=== PATIENT | female | born 1980 | race Caucasian/White ===

== ENCOUNTER → 2016-11-26 | Outpatient (CLI) | payer BC ==
[~2016-11-26] MED LIST: PRENTAB69 PO
== END | disposition home or self-care (01) ==
LOC: C.PAPS 15:19
PROVIDERS: ATTEND Obstetrics & Gynecology
DX: Z01.419 Encounter for gynecological examination (general) (routine) without abnormal findings (principal)

== ENCOUNTER → 2017-01-15 | Outpatient (CLI) | payer BC ==
--- NOTE | 2017-01-16 09:26 | PULMONARY FUNCTION TEST ---
CLINICAL DATA: A 36-year-old female with height of 72 inches and a weight 173 pounds referred by ALLY Schneider for pulmonary function testing to evaluate asthma and allergies with a cough. Spirometry pre- and post-bronchodilator, lung volumes, and DLCO were performed. FINDINGS: Pre-bronchodilator spirometry is within normal limits. FVC was 99% of predicted. FEV1 was 97% of predicted. [id number] was 92% of predicted. There was no significant improvement after inhaled bronchodilator. Lung volumes demonstrated a reduction in residual volume of unclear etiology. DLCO is normal at 125% of predicted. IMPRESSION: Normal spirometry with no improvement after inhaled bronchodilator. Normal diffusion capacity. MTDD
== END | disposition home or self-care (01) ==
LOC: C.RC 11:21
PROVIDERS: ATTEND Nurse Practitioner Family
DX: J30.9 Allergic rhinitis, unspecified (principal); J45.909 Unspecified asthma, uncomplicated

== ENCOUNTER → 2017-11-03 | Outpatient (CLI) | payer OTHER ==
--- NOTE | 2017-11-03 15:15 | MAMMOGRAPHY REPORT ---
BILATERAL DIGITAL DIAGNOSTIC MAMMOGRAM TOMOSYNTHESIS WITH CAD AND TARGETED LEFT ULTRASOUND: 11/03/2017 CLINICAL HISTORY: 37-year-old woman presents after she noticed a lump in the left upper outer quadran t a few weeks ago. It became less prominent but then more prominent again and has associated pain. No skin erythema, thickening or nipple discharge. Baseline examination. TECHNIQUE: Bilateral breast tomosynthesis in addition to standard 2D mammography was performed. Curr ent study was also evaluated with a Computer Aided Detection (CAD) system. COMPARISON: No prior exams were available for comparison. BREAST COMPOSITION: The tissue of both breasts is extremely dense, which lowers the sensitivity of m ammography. FINDINGS: A triangular palpable marker was placed on the skin of the left upper outer quadrant, denot ing the area of lump pointed out by the patient. There is a 3 cm asymmetry in the lateral posterior left breast in the CC projection, not as evident in the MLO projection. Although this could represen t normal overlapping tissue, additional evaluation with ultrasound was performed. There are round an d punctate microcalcifications most numerous in the upper outer quadrant for which additional spot ma gnification views were obtained. The additional spot magnification views of both breasts demonstrate regional superior round and punctate microcalcifications. Currently there is no suspicious grouping , cluster or linear microcalcifications. The microcalcifications most likely represent benign fibroc ystic change but given that they were identified on a baseline exam, a short interval follow-up is re commended to ensure stability in 6 months. No definite areas of architectural distortion, obvious gonzales spicious mass or other suspicious abnormality is seen bilaterally. Targeted ultrasound was performed in the area of lump and pain in the left 12:00 to 1:00 breast. The patient describes the lump as a slightly larger than a quarter and on palpation there is a 3-1/2 cm firm, nodular, mobile lesion identified. On ultrasound in the 12:00 to 12:30 left breast, periareola r region through 3 cm from the nipple, there are numerous anechoic cysts grouped in a linear distribu tion throughout the 12:30 radian. In conglomerate, they measure approximately 3.6 x 0.8 x 1.3 cm. T his likely explains both the lump and pain. There is no evidence of a suspicious hypoechoic solid ma ss. No focal skin thickening or drainable fluid collection identified. Throughout the remainder of the left upper outer quadrant, no suspicious solid mass is identified. Additional scanning also perf ormed in the left lower outer quadrant demonstrates no suspicious mass to correspond to the mammograp hic asymmetry, which likely represents a combination of overlapping tissue and the cysts identified o n ultrasound. IMPRESSION: ACR-BI-RADS CATEGORY 3: PROBABLY BENIGN, TARGETED ULTRASOUND ACR-BI-RADS CATEGORY 3: PRO BABLY BENIGN 1. The lump and associated pain in the 12:30 left breast likely corresponds to a grouping of anechoi c benign simple cyst seen on ultrasound in the 12:00 to 12:30 left breast periareolar region through 3 cm from the nipple, which measured 3.6 cm in maximum dimension in conglomerate. 2. However, continued clinical monitoring and clinical follow-up is recommended, as biopsy of a clin ically suspicious mass should not be precluded by negative imaging. 3. Additionally, benign-appearing regional round and punctate microcalcifications were noted in each superior breast and given that they were identified on a baseline exam, a six-month follow-up diagno stic mammogram including spot magnification views is recommended to ensure stability. An asymmetry i n the lateral posterior left breast should also be reassessed with tomosynthesis imaging and possible ultrasound at that time. These results and recommendations were discussed with the patient at the time of the exam. Approximately 10% of breast cancers are not detected with mammography. A negative mammographic report should not delay biopsy if a clinically suggestive mass is present. Susana Lockett M.D. ay/:11/03/2017 12:35:09 [employer]: [employer](Kathleen)(Brandy), [facility] letter sent: Follow Up Recommended 3 BI-RADS Code: ACR-BI-RADS Category 3: Probably Benign Ultrasound BI-RADS: ACR-BI-RADS Category 3: Pr obably Benign
== END | disposition home or self-care (01) ==
LOC: C.MAMM 10:00
PROVIDERS: ATTEND Nurse Practitioner Family
DX: N63.21 Unspecified lump in the left breast, upper outer quadrant (principal); R92.0 Mammographic microcalcification found on diagnostic imaging of breast